=== PATIENT | female | born 1970 | race Caucasian/White ===

== ENCOUNTER 2018-08-12 11:25 | Emergency (ER) | payer SELFPAY ==
[~2018-08-12] VITALS: Ht 172.7 cm; Wt 74.8 kg
--- OUTSIDE RECORDS SUMMARY | 2018-08-12 12:28 | XMS ---
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 Nadia has no Care Guidelines for this patient. Ajit VISIT COUNT (12 MO.) [facility] NOTE: Visits indicate total known visits. ED/UCC VISIT TRACKING (12 MO.) [facility] COMPLAINT: - LOW R SIDE ABD PAIN 08/12/2018 06:56 Adebayo Star[facility]ael[facility] TYPE: Emergency DIAGNOSES: - Fall - Multiple falls - Alcohol use, unspecified with intoxication, uncomplicated INPATIENT VISIT TRACKING (12 MO.) No inpatient visits to display in this time frame [email or web address]
[2018-08-12] MEDS ORDERED: PANTOPRAZOLE SO40 MG PO (13:47)
[2018-08-12] MEDS ORDERED: ZOFRAN ODT4 MG PO (13:47)
== END 2018-08-12 14:08 | disposition home or self-care (01) ==
LOC: ED 11:25
DX: R10.31 Right lower quadrant pain (principal); F10.20 Alcohol dependence, uncomplicated; Y90.8 Blood alcohol level of 240 mg/100 ml or more
CPT/HCPCS: 74022; 80053; 83605; 83690; 85025; 96361; 96374; 96375; 99284; G0480; J1885; J2405; J7030